=== PATIENT | female | born 1980 | race African-American/Black ===

== ENCOUNTER 2024-04-09 10:03 | Emergency (ER) | payer MEDICARE ==
[2024-04-09 11:33] LABS: ALT (SGPT) 13 U/L (8-55); AST (SGOT) 28 U/L (5-34); Albumin 4.1 g/dL (3.5-5.0); Alkaline Phosphatase 67 U/L (40-110); Anion Gap 19 mmol/L (10-20); BUN (Urea Nitrogen) 10 mg/dL (7.0-18.7); Bilirubin, Total 0.6 mg/dL (0.2-1.2); CK (CPK) 513 U/L (29-168); Calc. Creatinine Clearance 0 mL/min (70-130); Calcium 9.3 mg/dL (7.8-10.44); Carbon Dioxide 29 mmol/L (22-29); Chloride 96 mmol/L (98-107); Estimated GFR 80; Globulin 3.9 g/dL (2.4-3.5); Glucose 88 mg/dL (70-105); Lipase 27 U/L (8-78); Magnesium 1.3 mg/dL (1.6-2.6); Sodium 141 mmol/L (136-145)
[2024-04-09 11:36] LABS: Troponin I Less than 0.010 ng/mL (< 0.028)
[2024-04-09 12:05] LABS: Anisocytosis SLIGHT = 6-15 cells (100X) (0-5/hpf); Band 1 % (5-11); Hematocrit 40.5 % (36.0-47.0); Hypochromia SLIGHT = 6-15 cells (100X) (0-5/hpf); Large Platelets SLIGHT (None Seen); Lymphocytes 58 % (21-51); MDiff Complete? YES; Mean Corpuscular HGB CONC 29.6 g/dL (32.0-36.0); Mean Corpuscular Hemoglobin 25.9 pg (27.0-31.0); Mean Corpuscular Volume 87.4 fl (78.0-98.0); Mean Platelet Volume 11.3 fL (7.4-10.4); Monocytes 3 % (0-10); Neutrophil 38 % (42-75); Platelet Adequacy Comment Appears Adequate; Platelet Count 160 10x3/uL (130-400); RBC Distribution Width 13.1 % (11.5-14.5); Red Blood Cell (RBC) Count 4.63 mill/uL (4.20-5.40); White Blood Cell (WBC) Count 6.2 10x3/uL (4.8-10.8)
[2024-04-09] MEDS ORDERED: Ondansetron PF 4 MG/2 ML Vial ONE (12:05)
[2024-04-09] MEDS ORDERED: Dicyclomine 20 MG/2 ML VIAL ONE (12:05)
[2024-04-09] MEDS ORDERED: Potassium Bicarbonate/Cit Ac 20 MEQ TAB ONE (12:06)
[2024-04-09] MEDS ORDERED: Sodium Chloride 0.9% 1,000 ML ONE (12:06)
[2024-04-09] MEDS ORDERED: Magnesium 2 GM/50 ML BAG (IN WATER) ONE (13:30)
== END 2024-04-09 15:29 | disposition home or self-care (01) ==
LOC: MADERS 10:03
DX: E86.0 Dehydration (principal); E87.6 Hypokalemia; E83.42 Hypomagnesemia; M79.10 Myalgia, unspecified site; R11.2 Nausea with vomiting, unspecified; I50.9 Heart failure, unspecified; Z79.01 Long term (current) use of anticoagulants
CPT/HCPCS: 80053; 82550; 83690; 83735; 83880; 84484; 85025; 96361; 96365; 96372; 96375; 99284; J2405; J3475; J7030; 36415